=== PATIENT | female | born 1990 | race Caucasian/White ===

== ENCOUNTER 2017-09-20 23:30 | Emergency (ER) | payer BC ==
[2017-09-21] MEDS: Ibuprofen 200 MG Tab PO ONE ×2 (00:26→00:30)
--- NOTE | 2017-09-21 14:51 | EDM.PDOC ---
ED HPI GENERAL MEDICAL PROBLEM - General Chief Complaint: Upper Extremity Injury/Pain Stated Complaint: Fall, left shoulder pain Time Seen by Provider: 09/20/17 23:35 Source of Information: Reports: Patient History Limitations: Reports: No Limitations - History of Present Illness INITIAL COMMENTS - FREE TEXT/NARRATIVE: PtKala was wrestling with a friend's son and fell, landing on the L lateral aspect of his shoulder. She didn't strike her head. She complains of severe pain to her L anteriolateral shoulder pain. Denies any paresthesia distal to the area of injury. Location: Reports: Upper Extremity, Left Quality: Reports: Throbbing. Denies: Pressure left shoulder Pain Score (Numeric/FACES): 4 - Related Data Allergies Allergy/AdvReac Type Severity Reaction Status Date / Time No Known Allergies Allergy Verified 09/21/17 03:33 Home Meds: Home Meds . [No Known Home Meds] 09/21/17 [History] Past Medical History - Past Health History Medical/Surgical History: Denies Medical/Surgical History Review of Systems - Review of Systems Review Of Systems: See Below Constitutional: Reports: No Symptoms Eyes: Reports: No Symptoms Ears: Reports: Clear Discharge Nose: Reports: No Symptoms Mouth/Throat: Reports: No Symptoms Respiratory: Reports: No Symptoms Cardiovascular: Reports: No Symptoms GI/Abdominal: Reports: No Symptoms Genitourinary: Reports: Dysuria Musculoskeletal: Reports: Shoulder Pain (left sided) Skin: Reports: No Symptoms Neurological: Reports: No Symptoms Psychiatric: Reports: No Symptoms ED EXAM, GENERAL - Physical Exam Exam: See Below Exam Limited By: No Limitations General Appearance: Alert, WD/WN, No Apparent Distress Ears: Normal External Exam Nose: Normal Inspection, Normal Mucosa, No Blood Throat/Mouth: Normal Inspection, Normal Lips, Normal Teeth, Normal Gums, Normal Oropharynx, Normal Voice, No Airway Compromise Head: Atraumatic, Normocephalic Neck: Normal Inspection, Supple, Non-Tender, Full Range of Motion Respiratory/Chest: No Respiratory Distress, Lungs Clear, Normal Breath Sounds, No Accessory Muscle Use, Chest Non-Tender Cardiovascular: Normal Peripheral Pulses, Regular Rate, Rhythm, No Edema, No Gallop, No JVD, No Murmur, No Rub Peripheral Pulses: 4+: Radial (L), Radial (R) GI/Abdominal: Normal Bowel Sounds, Soft, Non-Tender, No Organomegaly, No Distention, No Abnormal Bruit, No Mass Extremities: Normal Inspection, Normal Capillary Refill, Joint Swelling, Other ( pain on palpation to L shoulder) Neurological: Alert, Oriented, CN II-XII Intact, Normal Cognition, Normal Gait, Normal Reflexes Psychiatric: Normal Affect, Normal Mood Skin Exam: Warm, Dry, Intact, Normal Color, No Rash Lymphatic: No Adenopathy Course - Vital Signs Last Recorded V/S: Last Vital Signs Temp 36.9 C 09/20/17 23:30 Pulse 120 H 09/20/17 23:30 Resp 20 09/20/17 23:30 BP 148/91 H 09/20/17 23:30 Pulse Ox 97 09/20/17 23:30 - Orders/Labs/Meds Orders: Active Orders 24 hr Category Date Time Status Shoulder Comp Lt [CR] Routine Exams 09/21/17 00:04 Taken Meds: Medications Discontinued Medications Generic Name Dose Route Start Last Admin Trade Name Freq PRN Reason Stop Dose Admin Ibuprofen 600 mg 09/21/17 00:20 09/21/17 00:30 Motrin PO 09/21/17 00:30 Not Given ONETIME ONE - Radiology Interpretation Free Text/Narrative:: No obvious fracture noted to xray Departure - Departure Time of Disposition: 00:50 Disposition: Home, Self-Care 01 Condition: Good Clinical Impression: Sprain of shoulder - Discharge Information Instructions: Shoulder Pain, [id number] Referrals: PCP,Unobtain [Primary Care Provider] - Forms: ED Department Discharge Additional Instructions: Home to rest. Ice shoulder for 15 min every hour. Ibuprofen 600mg every 6 hours or aleve 440mg twice daily follow-up in clinic in 7-10 days, sooner if not gradually improving. - Problem List Review Problem List Initiated/Reviewed/Updated: Yes - My Orders Last 24 Hours: My Active Orders 09/21/17 00:04 Shoulder Comp Lt [CR] Routine - Assessment/Plan Last 24 Hours: My Active Orders 09/21/17 00:04 Shoulder Comp Lt [CR] Routine Assessment:: L shoulder contusion Plan: Pt. was placed in a sling. Will have her follow-up with PCP in next 7-10 days. Ibuprofen for discomfort.
== END 2017-09-21 00:50 | disposition home or self-care (01) ==
LOC: VM.ED 23:30
DX: S43.402A Unspecified sprain of left shoulder joint, initial encounter (principal); S40.012A Contusion of left shoulder, initial encounter; W19.XXXA Unspecified fall, initial encounter
CPT/HCPCS: 73030-LT; 99283; A9270-GY

== ENCOUNTER 2019-03-29 01:27 | Emergency (ER) | payer BC ==
--- NOTE | 2019-03-29 01:43 | EDM.PDOC ---
ED HPI GENERAL MEDICAL PROBLEM - General Chief Complaint: Upper Extremity Injury/Pain Stated Complaint: Right and Left Hand Pain Time Seen by Provider: 03/29/19 01:42 - History of Present Illness INITIAL COMMENTS - FREE TEXT/NARRATIVE: PT presents with swelling and pain to both hands after hitting a wall. Swelling at the right 5th mcp joint. Pt states she has had fractures to this area in the past. Bilateral Hand Pain Score (Numeric/FACES): 6 - Related Data Allergies Allergy/AdvReac Type Severity Reaction Status Date / Time Sleep Medication AdvReac Mild Other Uncoded 03/29/19 01:30 Home Meds: Home Meds . [No Known Home Meds] 09/21/17 [History] Past Medical History - Past Health History Medical/Surgical History: Denies Medical/Surgical History Review of Systems - Review of Systems Review Of Systems: See Below Constitutional: Reports: No Symptoms Eyes: Reports: No Symptoms Ears: Reports: No Symptoms Nose: Reports: No Symptoms Mouth/Throat: Reports: No Symptoms Respiratory: Reports: No Symptoms Cardiovascular: Reports: No Symptoms GI/Abdominal: Reports: No Symptoms Genitourinary: Reports: No Symptoms Musculoskeletal: Reports: Other (pain to both hands, swelling at the right 5ht mcp joint no deformities noted. ) ED EXAM, GENERAL - Physical Exam Exam: See Below Free Text/Narrative:: Pt hit wall with both bands tonight, swelling at the right 5th mcp joint. Has broke this area in the last. No acute injuries noted on x ray. General Appearance: Alert, WD/WN Eye Exam: Bilateral Eye: PERRL Throat/Mouth: Normal Inspection Respiratory/Chest: No Respiratory Distress, No Accessory Muscle Use Cardiovascular: Normal Peripheral Pulses GI/Abdominal: Normal Bowel Sounds Extremities: Other (swelling to the right 5th mcp joint, no deformity noted to both hands cap refill within 2 sec. ) Neurological: Alert, Oriented Skin Exam: Warm, Dry, Intact Course - Vital Signs Last Recorded V/S: Last Vital Signs Temp 35.9 C 03/29/19 01:44 Pulse 125 H 03/29/19 01:44 Resp 16 03/29/19 01:44 BP 149/82 H 03/29/19 01:44 Pulse Ox 99 03/29/19 01:44 - Orders/Labs/Meds Orders: Active Orders 24 hr Category Date Time Status Hand Comp Min 3V Bi [CR] Stat Exams 03/29/19 01:36 Taken Departure - Departure Time of Disposition: 02:37 Disposition: Home, Self-Care 01 Clinical Impression: Hand pain - Discharge Information Instructions: RICE Therapy for Routine Care of Injuries, [id number] Referrals: Jessica Keene DO [Primary Care Provider] - Forms: ED Department Discharge - My Orders Last 24 Hours: My Active Orders 03/29/19 01:36 Hand Comp Min 3V Bi [CR] Stat - Assessment/Plan Last 24 Hours: My Active Orders 03/29/19 01:36 Hand Comp Min 3V Bi [CR] Stat
--- NOTE | 2019-03-29 08:44 | CR ---
[id number] RAD/RAD Hand Bilateral 2V EXAM: RIGHT HAND 3 VIEWS, LEFT HAND 3 VIEWS INDICATION: HIT WALL WITH HANDS. COMPARISON: None. DISCUSSION: Chronic healed fifth right metacarpal fracture. No acute fracture, dislocation or other osseous abnormality is seen on either side. IMPRESSION: 1. No acute findings. Marcellus Stinson MD 03/29/19 0843 Thank you for allowing us to participate in the care of your patient.
== END 2019-03-29 02:43 | disposition home or self-care (01) ==
LOC: VM.ED 01:27
DX: M79.642 Pain in left hand (principal); M79.641 Pain in right hand; Z88.8 Allergy status to other drugs, medicaments and biological substances; W22.01XA Walked into wall, initial encounter
CPT/HCPCS: 73130-50; 99283-25